=== PATIENT | female | born 1945 | race Caucasian/White ===

== ENCOUNTER → 2016-08-21 | Outpatient (CLI) | payer OTHER | LOC: FIMAGING 10:15 | PROVIDERS: ATTEND Family Medicine | DX: Z12.31 Encounter for screening mammogram for malignant neoplasm of breast (principal); Z80.3 Family history of malignant neoplasm of breast | CPT/HCPCS: G0202 ==

== ENCOUNTER → 2016-10-25 | Outpatient (CLI) | payer OTHER | LOC: FIMAGING 15:48 | PROVIDERS: ATTEND Podiatrist | DX: R22.42 Localized swelling, mass and lump, left lower limb (principal) ==

== ENCOUNTER 2016-11-11 11:25 | Day surgery (SDC) | payer OTHER ==
[2016-11-11] MEDS ORDERED: LIDOCAINE 1% 2 ML INJ ID PRN (11:32)
[2016-11-11] MEDS ORDERED: LR 1,000 ML IV ONE (11:32)
[2016-11-11 12:04] VITALS: PULSE 72
--- NOTE | 2016-11-11 12:56 | PDHPUP ---
History & Physical Update H&P update statement: This history and physical update is based on an assessment of the patient which was completed after admission or registration (within 24 hours), but prior to the surgery/procedure. H&P changes: No changes
[2016-11-11] MEDS ORDERED: CEFAZOLIN 1 GM/DEXTROSE/50 ML BAG IV ONE (13:00)
[2016-11-11] MEDS ORDERED: BACITRACIN 50,000 UNITS/10 ML SYR IRR ONE (13:19)
[2016-11-11] MEDS ORDERED: DEXAMETHASONE 4 MG/ML VIAL ONE ×2 (13:20)
[2016-11-11] MEDS ORDERED: POLYMYXIN B SULFATE 500,000 UNIT/10 ML SYR IRR ONE (13:21)
[2016-11-11] MEDS ORDERED: ROPIVACAINE HCL 20 MG/10 ML INJ EP ONE (13:22)
[2016-11-11] MEDS ORDERED: ROPIVACAINE HCL 150 MG/30 ML INJ ONE ×2 (13:22→14:27)
[2016-11-11] MEDS ORDERED: BUPIVACAINE 0.5% 30 ML SDV ONE (13:23)
[2016-11-11] MEDS ORDERED: MIDAZOLAM 2 MG/2 ML VIAL ONE (13:44)
--- NOTE | 2016-11-11 13:47 | PDANEPAE ---
ANE History of Present Illness L foot tumor excision ANE Past Medical History - Cardiovascular History Hx Hypertension: No Hx Arrhythmias: No Hx Chest Pain: No Hx Coronary Artery / Peripheral Vascular Disease: No Hx CHF / Valvular Disease: No Hx Palpitations: No - Pulmonary History Hx COPD: No Hx Asthma/Reactive Airway Disease: No Hx Recent Upper Respiratory Infection: No Hx Oxygen in Use at Home: No Hx Sleep Apnea: No Sleep Apnea Screening Result - Last Documented: Negative - Neurologic History Hx Cerebrovascular Accident: No Hx Seizures: No Hx Dementia: No Neurologic History Comment: insomnia, hx of syncope last 4 years ago - Endocrine History Hx Diabetes: No Hypothyroid: No Hyperthyroid: No - Renal History Hx Renal Disorders: Yes Renal History Comment: CKD. RENAL INSUFFIENCY - Liver History Hx Hepatic Disorders: No - Neurological & Psychiatric Hx Hx Neurological and Psychiatric Disorders: Yes Neurological / Psychiatric History Comment: ANXIETY - Cancer History Hx Cancer: No - Congenital Disorder History Hx Congenital Disorders: No - GI History Hx Gastrointestinal Disorders: Yes Gastrointestinal History Comment: IBS. GERD - Other Health History Other Health History: DVT RT LOWER LEG 1968. LUPUS. FIBROMYALGIA - Chronic Pain History Chronic Pain: Yes (FIBROMYALGIA) - Surgical History Prior Surgeries: HYSTERECTOMY. LUMBAR LAMINECTOMY. RT KNEE SCOPE X2. BREAST BX. TONSILLECTOMY. TUBAL LIGATION ANE Review of Systems - Exercise capacity METS (RN): 4 METS ANE Patient History - Allergies Allergies/Adverse Reactions: morphine [Morphine] Allergy (Unknown, Verified 09/19/15 20:34) oxycodone HCl [From Percocet] Allergy (Unknown, Verified 09/19/15 20:34) aspirin [From Percodan] Allergy (Verified 06/23/15 12:06) ciprofloxacin [From Cipro] Allergy (Verified 11/11/16 12:06) Rash meprobamate Allergy (Verified 09/28/14 16:36) NSAIDS (Non-Steroidal Anti-Inflamma Allergy (Verified 09/28/14 16:36) oxycodone terephthalate [From Percodan] Allergy (Verified 06/23/15 12:06) Penicillins Allergy (Verified 11/11/16 12:06) Rash Sulfa (Sulfonamide Antibiotics) Allergy (Verified 11/11/16 12:06) Rash - Home Medications Home Medications: DULoxetine [Cymbalta 60 MG (*)] 60 mg PO DAILY 06/23/15 [Last Taken 1 Day Ago] Diazepam [Valium 5 MG (*)] 2.5 mg PO HS PRN 06/23/15 [Last Taken 3 Weeks Ago] Herbals/Supplements -Info Only 1 ea PO DAILY 06/23/15 [Last Taken 1 Day Ago] Methenamine Rigo [Hiprex 1 gm (*)] 1 gm PO HS 06/23/15 [Last Taken 2 Days Ago] Pregabalin [Lyrica 75mg (*)] 75 mg PO DAILY 06/23/15 [Last Taken 1 Day Ago] Pregabalin [Lyrica 75mg (*)] 150 mg PO HS 06/23/15 [Last Taken 09/18/15] valACYclovir [Valtrex (*)] 500 mg PO BID PRN 06/23/15 [Last Taken 1 Week Ago] Zolpidem Tartrate [Ambien 5MG (*)] 5 mg PO HS PRN 06/27/15 [Last Taken 3 Months Ago] Acetaminophen [Tylenol ES 500 mg (*)] 1,000 mg PO DAILY PRN 09/19/15 [Last Taken 2 Weeks Ago] Cholecalciferol Vit D3 [Vitamin D3 (*)] 1,000 units PO DAILY 09/19/15 [Last Taken 1 Week Ago] Yuvafem 11/07/16 [Last Taken 11/06/16] Omeprazole 11/11/16 [Last Taken 11/06/16] - NPO status NPO Since - Liquids (Date): 11/10/16 NPO Since - Liquids (Time): 22:30 NPO Since - Solids (Date): 11/10/16 NPO Since - Solids (Time): 22:30 - Anes Hx Anes Hx: post operative nausea (after first general anesthesia) - Smoking Hx Smoking Status: Never smoked - Alcohol Use Alcohol Use: None ANE Labs/Vital Signs - Vital Signs Blood Pressure: 118/68 Heart Rate: 72 Respiratory Rate: 18 O2 Sat (%): 92 Height: 158.75 cm Weight: 64.41 kg ANE Physical Exam - Airway Neck exam: FROM Mallampati Score: Class 2 Mouth exam: normal dental/mouth exam (R upper cap) - Pulmonary Pulmonary: clear to auscultation - Cardiovascular Cardiovascular: regular rate and rhythym - ASA Status ASA Status: III ANE Anesthesia Plan Anesthesia Plan: GA with mask, MAC
[2016-11-11] MEDS ORDERED: MIDAZOLAM 2 MG/2 ML VIAL IVP ONE (13:51)
[2016-11-11] MEDS ORDERED: PROPOFOL 200 MG/20 ML VIAL ONE ×2 (13:54→14:42)
[2016-11-11] MEDS ORDERED: fentaNYL 100 MCG/2 ML INJ ONE (13:54)
[2016-11-11] MEDS ORDERED: LIDOCAINE 1% 300 MG/30 ML SDV ONE (14:08)
--- NOTE | 2016-11-11 15:17 | POSTOPPROG ---
Post Op Note Date of Operation: 11/11/16 Surgeon: Gali Head Subcontracts Manager: none Anesthesiologist: antonio arcos MD Anesthesia: IV Sedation Pre-op Diagnosis: soft tissue mass left foot, lipoma Post-op Diagnosis: soft tissue mass left foot Indication: pain Procedure: excision of soft tissue mass left foot Findings: soft tissue mass well defined, fatty tissue Inf/Abcess present in the surg proc area at time of surgery?: No Depth: Deep Incisional (Fascial) EBL: Minimal Total fluids administered: none Complications: none Specimen(s): specimen 3 cm x 1 .5 cm sent to pathology for gross and micro exam
[2016-11-11] MEDS ORDERED: NALOXONE HCL 0.4 MG/ML INJ IVP PRN (15:19)
[2016-11-11] MEDS ORDERED: fentaNYL 100 MCG/2 ML INJ IVP PRN (15:19)
[2016-11-11] MEDS ORDERED: ACETAMINOPHEN 500 MG TAB PO PRN (15:19)
--- NOTE | 2016-11-11 15:19 | POSTANESTH ---
Post Anesthetic Evaluation Cardiovascular Status: Normal, Stable, Similar to Pre-Op Cond Respiratory Status: Normal, Stable Level of Consciousness/Mental Status: Can Participate in Eval Pain Control: Adequate, Prn Tx Ordered Nausea/Vomiting Control: Adequate, Prn Tx Ordered Complications Possibly Related to Anesthesia: None Noted
[2016-11-11 17:23] VITALS: TEMP 97.7
[2016-11-11 17:25] VITALS: BP 98/64; RESP 20; O2SAT 94
--- NOTE | 2016-11-12 03:00 | GOP ---
[f rep st] OPERATIVE REPORT DATE OF OPERATION: 11/11/2016 SURGEON: Gali Head DPM ANESTHESIA: MAC, light general. ANESTHESIOLOGIST: Marco MD. PREOPERATIVE DIAGNOSIS: Benign soft tissue mass, left foot. Lipoma. POSTOPERATIVE DIAGNOSIS: Benign soft tissue mass, left foot. Lipoma. PROCEDURE PERFORMED: Excision of benign soft tissue mass, left foot, suspect lipoma. FINDINGS: ESTIMATED BLOOD LOSS: Less than 5 cc minimal. INDICATIONS: Soft tissue mass, plantar lateral aspect 5th metatarsal, left foot. Confirmed with MR I study. Patient experienced discomfort and pain. At this time, she elects to proceed with surgery . DESCRIPTION OF PROCEDURE: Patient was brought into the operating room, placed on the operating tabl e in the supine position. Intravenous sedation administered by the anesthesiologist. A posterior t ibial and peripheral nerve block were obtained utilizing a total of 15 cc of a 1:1 mix of 0.5% Justyn ine plain and 1% lidocaine plain. The lower extremity was prepped and draped in the usual sterile m krissy. After the limb was elevated, it was exsanguinated with an Esmarch bandage and ankle tourniqu et was inflated to 230 mmHg. Webril padding utilized under the ankle cuff. Attention was directed toward the lateral aspect of the 5th metatarsal, more plantar aspect, where a wave type incision was created measuring approximately 5 cm in length. Incision was carefully deep ened with care of neurovascular structures and to clamp and cauterize bleeders. As the incision was deepened, a soft tissue mass consistent with other lipoma was identified, planted to the adductor d igiti minimi muscle. With careful dissection, the soft tissue mass was carefully freed from the liliane rounding soft tissue structures, it was very well defined and delineated from the surrounding soft t issue. It had a stalk that extended more distally attaching to the abductor digiti minimi, which wa s released. Soft tissue mass sent to Pathology for gross and microscopic examination. Tourniquet w as deflated and a normal hyperemic response was noted to all digits. Bleeders were cauterized and w ell controlled. The wound was copiously irrigated with bacitracin irrigation solution. A separate stab incision created for exiting of a silastic drain, secured with Prolene. Monocryl was used for the subcutaneous closure and the skin was closed with 4-0 Prolene in a horizontal mattress and singl e interrupted suture fashion. Dressings included Xeroform, 4x4s, fluffs reinforced with tape Teresita and Jose bandage. Patient tolerated the procedure and anesthesia well, left the operating room with vital signs stable and vascular status intact to all digits. ADDITIONAL INJECTABLES: 8 cc of 0.5% Ropivacaine. In postoperative recovery room, the patient was doing well. Fitted with a cryo cuff and postop shoe . Her will be providing with her transportation home. PROGNOSIS: Good. /[id number]/MODL
== END 2016-11-11 18:52 | disposition home or self-care (01) ==
LOC: FSGY 11:25
PROVIDERS: ATTEND Podiatrist
PROC: 0JBR0ZX Excision of Left Foot Subcutaneous Tissue and Fascia, Open Approach, Diagnostic (ICD-10-PCS; principal; 2016-11-11 12:45)
DX: D17.39 Benign lipomatous neoplasm of skin and subcutaneous tissue of other sites (principal); N18.3 Chronic kidney disease, stage 3 (moderate); F41.8 Other specified anxiety disorders; M79.7 Fibromyalgia; M32.9 Systemic lupus erythematosus, unspecified; G25.81 Restless legs syndrome; Z86.718 Personal history of other venous thrombosis and embolism
CPT/HCPCS: J0690; J1100; J2250; J2704; J2795; J3010

== ENCOUNTER → 2017-09-04 | Outpatient (CLI) | payer OTHER | LOC: FIMAGING 13:48 | PROVIDERS: ATTEND Internal Medicine Rheumatology | DX: I82.531 Chronic embolism and thrombosis of right popliteal vein (principal); M71.22 Synovial cyst of popliteal space [Baker], left knee ==

== ENCOUNTER → 2017-09-12 | Outpatient (CLI) | payer OTHER | LOC: FIMAGING 13:02 | PROVIDERS: ATTEND Family Medicine | DX: Z12.31 Encounter for screening mammogram for malignant neoplasm of breast (principal) ==

== ENCOUNTER 2017-09-25 21:58 | Emergency (ER) | payer OTHER ==
--- NOTE | 2017-09-25 22:02 | EDPHY ---
H & P Stated Complaint: L Leg Swelling Time Seen by Provider: 09/25/17 22:02 HPI/ROS: HPI CHIEF COMPLAINT: Left leg swelling. Redness. HISTORY OF PRESENT ILLNESS: 72-year-old female, history of fibromyalgia, lupus , recent history of left lower extremity DVT, on Xarelto, presents to the emergency room with left lower extremity area redness and pain. She concerned that maybe she has recurrent DVT. However she reports to me that she recently started a spin cycle class does not remember any trauma to her leg or bumping it on anything. Denies chest pain or shortness of breath, denies hemoptysis, denies pleuritic pain, denies fever. Denies her leg being more swollen than normal. Past Medical History: Fibromyalgia, lupus, kidney disease, DVT Past Surgical History: Denies recent surgery Social History: Denies drugs alcohol tobacco. Family History: Noncontributory ROS REVIEW OF SYSTEMS: A comprehensive 10 point review of systems is otherwise negative aside from elements mentioned in the history of present illness. Exam Constitutional triage nursing summary reviewed, vital signs reviewed, awake/ alert. Eyes normal conjunctivae and sclera, EOMI, PERRLA. HENT normal inspection, atraumatic, moist mucus membranes, no epistaxis, neck supple/ no meningismus, no raccoon eyes. Respiratory clear to auscultation bilaterally, normal breath sounds, no respiratory distress, no wheezing. Cardiovascular rate normal, regular rhythm, no murmur, no edema, distal pulses normal. Gastrointestinal soft, non-tender, no rebound, no guarding, normal bowel sounds, no distension, no pulsatile mass. Genitourinary no CVA tenderness. Musculoskeletal left lower extremity: Area to the left lateral lower leg area of redness 5 cm x 5 cm, mild tender palpation. No significant pitting edema. No crepitus. Compartments soft. no midline vertebral tenderness, full range of motion, no calf swelling, no tenderness of extremities, no meningismus, good pulses, neurovascularly intact. Skin pink, warm, & dry, no rash, skin atraumatic. Neurologic awake, alert and oriented x 3, AAOx3, moves all 4 extremities equally, motor intact, sensory intact, CN II-XII intact, normal cerebellar, normal vision, normal speech. Psychiatric normal mood/affect. Heme/Lymph/Immune no lymphadenopathy. Differential Diagnosis: Includes but is not limited to in a particular order left lower extremity DVT, left lower extremity cellulitis, vasculitis, soft tissue contusion, superficial phlebitis Medical Decision Making: Plan for this patient ultrasound left lower extremity to rule out DVT. Additionally will outline the area of redness. Will most likely start on Keflex as this is warm, tender, and erythematous could possibly be area of cellulitis. Re-evaluation: Ultrasound shows no evidence of new DVT. There is remaining clot and a popliteal cyst on that side. The clot has improved somewhat. Updated patient on her ultrasound results. Recommend she takes Keflex for the area redness and swelling. Return if worsening pain, swelling, redness, fever she understands. Keep leg elevated. Continue her Xarelto. Some of the fullness behind her left knee is most likely due to a popliteal cyst. Follow up with her primary care doctor. Return precautions discussed. Source: Patient - Personal History Current Tetanus Diphtheria and Acellular Pertussis (TDAP): Yes Tetanus Vaccine Date: <10 years - Medical/Surgical History Hx Asthma: No Hx Chronic Respiratory Disease: No Hx Diabetes: No Hx Renal Disease: Yes Hx Cirrhosis: No Hx Alcoholism: No Hx HIV/AIDS: No Hx Splenectomy or Spleen Trauma: No Other PMH: Lupus, kidney disease, fibromyalgia, back sgy, knee sgy - Social History Smoking Status: Never smoked Constitutional: Initial Vital Signs Temperature (C) 36.7 C 09/25/17 21:59 Heart Rate 84 09/25/17 21:59 Respiratory Rate 18 09/25/17 21:59 Blood Pressure 121/79 H 09/25/17 21:59 O2 Sat (%) 96 09/25/17 21:59 O2 Delivery Mode Room Air Allergies/Adverse Reactions: morphine [Morphine] Allergy (Unknown, Verified 09/19/15 20:34) oxycodone HCl [From Percocet] Allergy (Unknown, Verified 09/19/15 20:34) aspirin [From Percodan] Allergy (Verified 06/23/15 12:06) ciprofloxacin [From Cipro] Allergy (Verified 11/11/16 12:06) Rash meprobamate Allergy (Verified 09/28/14 16:36) NSAIDS (Non-Steroidal Anti-Inflamma Allergy (Verified 09/28/14 16:36) oxycodone terephthalate [From Percodan] Allergy (Verified 06/23/15 12:06) Penicillins Allergy (Verified 11/11/16 12:06) Rash Sulfa (Sulfonamide Antibiotics) Allergy (Verified 11/11/16 12:06) Rash Home Medications: Medication Instructions Recorded DULoxetine [Cymbalta 60 MG (*)] 60 mg PO DAILY 06/23/15 Diazepam [Valium 5 MG (*)] 2.5 mg PO HS PRN 06/23/15 Herbals/Supplements -Info Only 1 ea PO DAILY 06/23/15 Methenamine Rigo [Hiprex 1 gm (*)] 1 gm PO HS 06/23/15 Pregabalin [Lyrica 75mg (*)] 75 mg PO DAILY 06/23/15 Pregabalin [Lyrica 75mg (*)] 150 mg PO HS 06/23/15 valACYclovir [Valtrex (*)] 500 mg PO BID PRN 06/23/15 Zolpidem Tartrate [Ambien 5MG (*)] 5 mg PO HS PRN 06/27/15 Acetaminophen [Tylenol ES 500 mg 1,000 mg PO DAILY PRN 09/19/15 (*)] Cholecalciferol Vit D3 [Vitamin D3 1,000 units PO DAILY 09/19/15 (*)] Yuvafem 11/07/16 Omeprazole 11/11/16 Cephalexin [Keflex] 500 mg PO Q6H #28 cap 09/25/17 Medical Decision Making - Diagnostics Imaging Results: Imaging Impressions Extremity Venous Study 09/25/17 22:08 Impression: 1. Partial resolution of previously noted thrombus in the left popliteal vein with nonocclusive thrombus persisting. 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 2. Plascencia's cyst in left popliteal fossa. Results called and discussed with Tay Figueredo MD on 09/25/2017 at 23:45. Departure - Departure Disposition: Home, Routine, Self-Care Clinical Impression: Cellulitis Qualifiers: Site of cellulitis: extremity Site of cellulitis of extremity: lower extremity Laterality: left Qualified Code(s): L03.116 - Cellulitis of left lower limb Condition: Good Instructions: Cellulitis (ED) Additional Instructions: 1. Antibiotic as prescribed. 2. Keep her leg elevated, compression stocking. 3. Return emergency room if you have worsening symptoms includes worsening swelling, redness, pain. Referrals: Amber Kitchen MD [Primary Care Provider] - As per Instructions Prescriptions: Cephalexin [Keflex] 500 mg PO Q6H #28 cap
[2017-09-25] MEDS ORDERED: CEPHALEXIN 500MG PREPACK#4 BTL TAKEHOME ONE (23:59)
[2017-09-26 00:06] VITALS: BP 117/76
== END 2017-09-26 00:06 | disposition home or self-care (01) ==
DX: L03.116 Cellulitis of left lower limb (principal)

== ENCOUNTER 2017-12-21 16:45 | Emergency (ER) | payer OTHER ==
[2017-12-21] MEDS ORDERED: PROPARACAINE/FLUORESCEIN SOD 5 ML OPHT.BTL OP ONE (17:04)
--- NOTE | 2017-12-21 17:04 | EDPHY ---
General Time Seen by Provider: 12/21/17 17:00 Narrative: CHIEF COMPLAINT: Eye pain HISTORY OF PRESENT ILLNESS: Patient presents with complaints of right eye pain. This started this morning when she accidentally put soap directly into the right eye. She irrigated the eye and feels some relief for. At time, and then the pain returned. It is a moderate to severe pain. Worse when she does not press on it. It is no worse with exposure to light in the right or the left eye. Some blurred vision at time. No double vision. No painful movement of the eye. No fever. No headache. No rash to the face or nose. She wears glasses but not contacts. Her tetanus is up-to-date less than 5 years No other associated complaints or modifying factors REVIEW OF SYSTEMS: 10 systems were reviewed and negative with the exception of the elements mentioned in the history of present illness. PCP: Dr. Amber Kitchen SPECIALISTS: Dr. Vaz, medical reception specialist PAST MEDICAL HISTORY: Lupus, kidney disease, fibromyalgia, arthritis, degenerative disc PAST SURGICAL HISTORY: Knee orthopedic surgery SOCIAL HISTORY: Nonsmoker. Lives independently with her spouse FAMILY HISTORY: Noncontributory EXAMINATION: General Appearance: Alert, no distress Head: normocephalic, atraumatic Eyes: Pupils equal and round, no conjunctival pallor. There is moderate right- sided conjunctival injection with no hyphema or subconjunctival hemorrhage. There is no foreign body with lid everted. Fluorescein exam reveals no conjunctival or corneal abrasion. There is no pain with direct or consensual dilatation of the pupils. No periorbital cellulitis. No vesicular lesions or evidence of zoster of the face. ENT, Mouth: Mucous membranes moist Neck: Normal inspection, supple, non-tender Neurological: A&O, nonfocal, normal gait Skin: Warm and dry, no rash. No periorbital cellulitis. No facial rash, vesicles or lesions Extremities: Nontender, no pedal edema Psychiatric: Mood and affect normal DIFFERENTIAL DIAGNOSES: Including but not limited to chemical conjunctivitis, conjunctivitis, corneal abrasion, conjunctival abrasion, iritis MDM: 5:00 p.m. Acute conjunctivitis of the right eye that is likely chemical in nature. I do not appreciate any evidence of iritis. I do not appreciate any evidence of periorbital or orbital cellulitis. I have ordered flucaine, and I will stain the eye and perform lamp exam. Tetanus is up-to-date. She is in no acute distress. She is not wear any contacts but does were glasses. There is no rash about the face, nose or periorbital skin. 5:30 p.m. Fluorescein exam reveals no uptake. PH of the eye a 7.5 by litmus paper. We will irrigate the eye, place a soft eye patch and treat with erythromycin topical empirically. 6:00 p.m. Patient re-evaluated. She feels significantly better after the irrigation of the eye. She is opening both eyes spontaneously. She is tolerating the normal light in the room. Visual michael intact by confrontation. Visual acuity documented. There is no evidence of zoster, periorbital cellulitis or orbital cellulitis. We discussed discharge home with erythromycin ointment to 3 times daily. We discussed strict ED precautions if no resolution tomorrow. We discussed contacting her established locomotive firer tomorrow morning to be seen tomorrow without fail. Return here if unable to do so. Also return to emergency department for any rash, vesicles or lesions to the face I have answered all of her questions and she is discharged home stable condition SUPERVISION: Patient was independently examined, but I discussed the case with my secondary supervising physician Dr. Walls CONSULTATION: None. Ophthalmology referral - History Smoking Status: Never smoked - Objective Vital Signs: Initial Vital Signs Temperature (C) 97.5 F 12/21/17 16:48 Heart Rate 88 12/21/17 16:48 Respiratory Rate 16 12/21/17 16:48 Blood Pressure 123/80 H 12/21/17 16:48 O2 Sat (%) 97 12/21/17 16:48 O2 Delivery Mode Room Air Allergies/Adverse Reactions: morphine [Morphine] Allergy (Unknown, Verified 09/19/15 20:34) oxycodone HCl [From Percocet] Allergy (Unknown, Verified 09/19/15 20:34) aspirin [From Percodan] Allergy (Verified 06/23/15 12:06) ciprofloxacin [From Cipro] Allergy (Verified 11/11/16 12:06) Rash meprobamate Allergy (Verified 09/28/14 16:36) NSAIDS (Non-Steroidal Anti-Inflamma Allergy (Verified 09/28/14 16:36) oxycodone terephthalate [From Percodan] Allergy (Verified 06/23/15 12:06) Penicillins Allergy (Verified 11/11/16 12:06) Rash Sulfa (Sulfonamide Antibiotics) Allergy (Verified 11/11/16 12:06) Rash Home Medications: Medication Instructions Recorded DULoxetine [Cymbalta 60 MG (*)] 60 mg PO DAILY 06/23/15 Diazepam [Valium 5 MG (*)] 2.5 mg PO HS PRN 06/23/15 Herbals/Supplements -Info Only 1 ea PO DAILY 06/23/15 Methenamine Rigo [Hiprex 1 gm (*)] 1 gm PO HS 06/23/15 Pregabalin [Lyrica 75mg (*)] 75 mg PO DAILY 06/23/15 Pregabalin [Lyrica 75mg (*)] 150 mg PO HS 06/23/15 valACYclovir [Valtrex (*)] 500 mg PO BID PRN 06/23/15 Zolpidem Tartrate [Ambien 5MG (*)] 5 mg PO HS PRN 06/27/15 Acetaminophen [Tylenol ES 500 mg 1,000 mg PO DAILY PRN 09/19/15 (*)] Cholecalciferol Vit D3 [Vitamin D3 1,000 units PO DAILY 09/19/15 (*)] Yuvafem 11/07/16 Omeprazole 11/11/16 Cephalexin [Keflex] 500 mg PO Q6H #28 cap 09/25/17 Medications Given: Discontinued Medications Erythromycin (Erythromycin 0.5%) 1 agatha RTEYE ONCE ONE Stop: 12/21/17 17:32 Last Admin: 12/21/17 17:53 Dose: 1 agatha Proparacaine HCl/Fluorescein Sodium (Flucaine) 2 drops OP EDNOW ONE Stop: 12/21/17 17:05 Last Admin: 12/21/17 17:19 Dose: 2 drops Departure - Departure Disposition: Home, Routine, Self-Care Clinical Impression: Chemical conjunctivitis of right eye Condition: Good Instructions: Erythromycin (Into the eye), Chemical Eye Florentino (ED), Conjunctivitis (ED) Additional Instructions: 1. Contact your established locomotive firer or the on-call locomotive firer Dr. Thomason on Friday morning to be seen on Friday without fail unless completely resolved 2. Return here if her symptoms have not resolved you are unable to be seen by locomotive firer tomorrow 3. Erythromycin ointment was provided to you in the emergency department. Apply a thin ribbon to the lower right eyelid 3 times daily for 5-7 days 4. Soft patches been provided. You may remove this as tolerated 5. Return to the emergency department for any vesicles, blisters, rash or lesions on the face, nose or surrounding her right eye 6. Return to the emergency department for any painful movement of the eye musculature, fever or headache Referrals: Amber Kitchen MD [Primary Care Provider] - As per Instructions Miki Thomason MD [Medical Doctor] - As per Instructions
[2017-12-21] MEDS ORDERED: FLUORESCEIN SODIUM 1 MG STRIP OP ONE (17:11)
[2017-12-21] MEDS ORDERED: ERYTHROMYCIN 0.5% 1 GM OPHT.OINT RTEYE ONE (17:31)
[2017-12-21 18:39] VITALS: BP 126/81
== END 2017-12-21 18:39 | disposition home or self-care (01) ==
DX: H10.211 Acute toxic conjunctivitis, right eye (principal)